=== PATIENT | female | born 1985 | race Caucasian/White ===

== ENCOUNTER 2016-05-03 20:31 | Emergency (ER) | payer OTHER ==
[~2016-05-03 20:31] MED LIST: DIFLUCAN100 MG PO; TRAMADOL HCL50 M1 PO; ZYVOX600 MG PO
[2016-05-03 21:37] LABS: BASOPHIL# 0.1 X10e3 (0-0.3); BASOPHIL% 0.6 % (0-2.5); EOSINOPHIL% 0.2 % (0.0-7.0); HEMATOCRIT 37.5 % (35.0-45.0); HEMOGLOBIN 12.4 gm/dL (12.0-16.0); LYMPHOCYTE# 1.5 X10e3 (1.0-3.5); LYMPHOCYTE% 14.3 % (17.0-45.0); MEAN CELL VOLUME 82.7 FL (83-96); MEAN CORPUSCULAR HEMOGLOBIN 27.3 PG (28-34); MEAN PLATELET VOLUME 8.8 FL (6.5-11.5); MONOCYTE# 0.6 X10e3 (0-1.0); MONOCYTE% 5.7 % (3.0-12.0); NEUTROPHIL# 8.3 X10e3 (1.5-7.1); NEUTROPHIL% 79.2 % (40-75); PLATELET COUNT 304 X10e3 (140-420); RED BLOOD COUNT 4.53 X10e (3.90-5.30); RED CELL DISTRIBUTION WIDTH 14.7 % (11.0-15.5); WHITE BLOOD COUNT 10.5 X10e3 (4.0-10.5)
[2016-05-03 21:38] LABS: DIFF IND NO
[2016-05-03 22:12] LABS: ALBUMIN SERUM 3.8 g/dL (3.5-5.0); ALKALINE PHOSPHATASE 72 U/L (32-92); ALT (SGPT) 10 U/L (10-40); AST (SGOT) 14 U/L (10-42); BILIRUBIN, DIRECT 0.1 mg/dL (0.0-0.2); BILIRUBIN,TOTAL 1.1 mg/dL (0.2-2.0); BLOOD UREA NITROGEN 8 mg/dL (9-23); CALCIUM SERUM 8.7 mg/dL (8.4-10.2); CARBON DIOXIDE 24 mmol/L (22-31); CHLORIDE 104 mmol/L (100-111); CREATININE SERUM 0.8 mg/dL (0.6-1.4); GLOM FILT RATE Estimated ABOVE60 mL/min (>60); GLUCOSE FASTING 125 mg/dL (70-110); LIPASE 19 U/L (22-51); POTASSIUM 3.4 mmol/L (3.5-5.1); PROTEIN TOTAL SERUM 7.2 g/dL (6.0-8.3); SODIUM 137 mmol/L (135-145)
== END 2016-05-04 01:21 | disposition home or self-care (01) ==
LOC: CED 20:31
PROVIDERS: Emergency Medicine
DX: R11.2 Nausea with vomiting, unspecified (principal); F41.9 Anxiety disorder, unspecified; Z90.49 Acquired absence of other specified parts of digestive tract; Z88.8 Allergy status to other drugs, medicaments and biological substances
CPT/HCPCS: 36415; 74177; 80048; 80076; 81003; 82150; 83690; 84703; 85025; 87086; 87088; 87186; 96361; 96374; 96375; 96376; 99284; J1170; J2550; J2765; Q9967

== ENCOUNTER 2016-07-25 06:56 | Inpatient (IN) | payer OTHER ==
--- NOTE | ~2016-07-25 | CO ---
Unit #: [id number] #: [id number] Patient: CORNEL PONCE [id number] [facility]. [place], [place] [address] [id number] I MR#: [id number] NAME: CORNEL PONCE. ROOM: [facility] Age: 31 Sex: F Admission Date: 07/25/2016 : 1985 Attending Physician: Cristino Thorne M.D. Primary Care Physician: No Primary Care Physician Consultation Date: 07/26/2016 CONSULTATION REPORT REASON FOR CONSULTATION Cellulitis and antibiotic management. HISTORY OF PRESENT ILLNESS This is a 31-year-old female who is currently laying in bed. Patient reports that she has had a chronic abdominal wound secondary to necrotizing fasciitis that she got after a approximately 13 months ago. The patient reports that she has undergone multiple surgeries. She was treated at the outside hospital. The patient last was admitted at [facility] in January 2016 for abdominal cellulitis/chronic wound infection which cultures grew MRSA and group D Strep. The patient now reports that over the last one day she has had increasing tenderness and erythema of her abdomen. The patient reports she did have some low grade fever at home. PAST MEDICAL HISTORY Includes: 1. . 2. Multiple abdominal surgeries secondary to necrotizing fasciitis post . 3. Patient denies any diabetes. ALLERGIES No known allergies. However, she reports "I am vancomycin intolerant." SOCIAL HISTORY No tobacco or alcohol use. She does report marijuana use per the H and P. REVIEW OF SYSTEMS The patient reports fever, tenderness in the abdomen with a chronic wound that overall has improved. She denies any UTI signs or symptoms, cough, shortness of breath or chest pain. PHYSICAL EXAMINATION VITAL SIGNS: Temperature is 98.5 with a T-max on admission of 102.8, pulse is 92, blood pressure 129/82 and respiratory rate is 18. GENERAL: This is a no apparent distress female who is morbidly obese, resting in the bed. Her pupils are equal, her neck is supple. CARDIOVASCULAR: S1, S2. Regular rate and rhythm. PULMONARY: Clear to auscultation, however, diminished in the bases and distant sounds. ABDOMEN: Obese with significant erythema and warmth along much of her pannus. The patient has a chronic midline wound that does have some drainage noted with no foul odor. Abdomen is soft and distant bowel Unit #: [id number] #: [id number] Patient: CORNEL PONCE. EXTREMITIES: No clubbing, cyanosis or edema. DIAGNOSTIC STUDIES LABORATORY: BUN 7, creatinine 0.8, sodium 134, potassium 3.2, chloride 103, CO2 24, bilirubin 1.7, AST 14, ALT 13, alkaline phos. 78. Lactic acid 0.9. Glucose is 134. White blood cell count 10.7 which is improved from 19.1 on admission. Hemoglobin 12.7, hematocrit 38.7 and platelets 190. Urinary analysis is unremarkable. Abdominal cultures show gram stain, Gram-positive cocci and Gram-negative rods. Blood cultures are currently pending. February 03, 2016, abdominal cultures for MRSA and group D Strep. IMPRESSION This is a 31-year-old female who is morbidly obese with a history of necrotizing fasciitis approximately 13 months ago after emergent . The patient has had multiple incision and drainages as well as infections including VRE per the patient's report, MRSA and group D Strep. The patient is now admitted with two day history and does have obvious abdominal cellulitis and possible chronic wound infection. Will follow up on CT scan findings. Will treat as abdominal cellulitis/panniculitis. Will add Zyvox and Zosyn. However, continue patient's clindamycin at this time. Patient's leukocytosis already appears to be improving. Will need to follow along patient's temperature. Surgery is also following along with this patient and giving recommendations on wound care. Patient may have limited IV access and objection to PICC line if needed. Will check labs in the morning. Thank you for allowing us to participate in the care of this patient. Further recommendations to follow pending patient's clinical course. Dictated by... June Galvan A.P.R.N. for Ravi Ayon TD: 07/26/2016 11:17 JOB #: [id number] CONSULTATION REPORT Page 1 of 1 X X CONSULTATION REPORT
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
--- NOTE | ~2016-07-25 | DS ---
Unit #: [id number] #: [id number] Patient: CORNEL PONCE [id number] [address] [address] [id number] I MR#: [id number] NAME: CORNEL PONCE. ROOM: 232 Age: 31 Sex: F Admission Date: 07/25/2016 : 1985 Discharge Date: 07/28/2016 Attending Physician: Cristino Thorne M.D. Primary Care Physician: No Primary Care Physician DISCHARGE SUMMARY DISCHARGE DIAGNOSES 1. Abdominal cellulitis. 2. Wound dehiscence. 3. Hyponatremia. 4. Sepsis. HOSPITAL COURSE The patient is a 31-year-old female who presents to [facility] complaining of fever and redness around abdominal wound. The patient had an I and D of an abdominal wall abscess in January 2012. Apparently, the area of prior incision and drainage became red and painful the day prior to presentation. The wound itself opened up and began to have some purulent discharge. As a result, the patient was admitted. CT of the abdomen and pelvis showed skin thickening and an open wound but no abscess. Wound culture ultimately grew MRSA susceptible to Bactrim, tetracyclines and vanc. The patient was initially started on clinda, Zosyn and Zyvox at the time of admission. Given culture results, patient's antibiotics were switched to Zyvox. At the time of discharge, the patient states that she needs to go home and be with her child who is just a few months old. Given availability of culture and sensitivities, it seems reasonable and patient has been discharged home. DISCHARGE MEDICATIONS 1. Zyvox 600 mg p.o. b.i.d. 2. Acetaminophen 650 mg p.o. q.4 hours p.r.n. pain and fever. 3. Bactroban topically to affected area twice a day b.i.d. FOLLOWUP The patient should follow with her primary care provider at the end of her antibiotic course. Dictated by... Ravi Gauthier/ela TD: 07/31/2016 09:41 JOB #: [id number] Unit #: [id number] #: [id number] Patient: CORNEL PONCE DISCHARGE SUMMARY Page 1 of 1 X Cristino Thorne MD DISCHARGE SUMMARY
--- NOTE | ~2016-07-25 | BMI ---
[facility] Nutrition Therapy DATE: 07/26/16 Patient: CORNEL PONCE Physician: MICHAEL Address: [address] [place] [address] Room/Bed: [address] [place] [address], Zip: [place] [address] Admit Date: 07/25/16 Date of : [birth year] Height: 5 6 Weight: 374 169.8 HIGH BMI NOTE: ANTHROPOMETRICS: HT: 66" WT: 169.8 KG BMI: 60.4 DIET: REGULAR RECOMMENDATIONS: 1. ADD HEART HEALTHY DIET RESTRICTION IN ORDER TO PROMOTE GRADUAL WEIGHT LOSS TOWARDS A HEALTHY BMI. Respectfully, KAY KENT RD, LD [facility] cc: client file
--- NOTE | ~2016-07-25 | CT2 ---
[facility] A Service of [facility] RADIOLOGY TEXT RESULTS PATIENT: CORNEL PONCE LOCATION: A 232-01 : [birth year] UNIT #: [id number] AGE: [address]: Cristino Thorne MD SEX: F ORDER DR: [id number] [facility] [address] [facility] [place]. [place], [place] [address] [id number] I MR#: [id number] Acc #: [id number] NAME: CORNEL PONCE. : 1985 SEX: F STUDY DATE/TIME: 07/26/2016 9:12 UNIT: [facility] ROOM: [facility] STUDY DESCRIPTION: CT Abd and Pelv W Cont Attending Physician: Cristino Thorne M.D. Ordering Physician: Ed Doctor [id number] [facility] Primary Care Physician: Primary Care Physician No MEDICAL IMAGING REPORT This report is preliminary unless electronic signature is present EXAM CT abdomen and pelvis with contrast INDICATION Open wound and abscess. Mid to lower abdominal pain for 13 months, MRSA. TECHNIQUE CT of the abdomen and pelvis was performed following the administration of IV contrast. Coronal and sagittal reformatted images were obtained. This CT examination was performed with one or more of the following radiation dose reduction techniques: automatic exposure control, adjustment of mA and/or kV according to patient size, and iterative reconstruction. Comparison with 05/03/2016. FINDINGS The lung bases are clear. The liver is unremarkable. Cholecystectomy. The spleen is unremarkable. Kidneys are unremarkable. The adrenal glands and pancreas are unremarkable. There is a small fat-containing ventral abdominal wall hernia. No evidence for bowel obstruction. There is no free fluid in the abdomen. PELVIS: There is no evidence for a pelvic abscess. The colon is unremarkable. The appendix is normal. There is skin thickening and edema involving the lower abdominal wall anteriorly with what appears to be an open wound. Findings may reflect cellulitis. Please correlate clinically. There is no evidence for definite abscess. IMPRESSION 1. There is skin thickening involving the lower abdominal wall anteriorly with underlying fat stranding and what appears to be an open wound or a large scar. No evidence for abscess. Correlate clinically with physical exam findings. 2. No evidence of intraabdominal or pelvic abscess. STS. [facility] A Service of [facility] RADIOLOGY TEXT RESULTS PATIENT: CORNEL PONCE LOCATION: [facility] 232-01 : [birth year] UNIT #: [id number] AGE: [address]: Cristino Thorne MD SEX: F ORDER DR: 3. Additional findings as described. Dictated by... Daryn Hussein M.D. THIS IS AN ELECTRONICALLY VERIFIED REPORT Daryn Hussein M.D. at 07/27/2016 7:14 AM ALEX/seun TD: 07/26/2016 13:10 JOB #: [id number] MEDICAL IMAGING REPORT Page 1 of 1 COPY
[2016-07-25 08:35] LABS: BASOPHIL% 0.2 % (0-2.5); EOSINOPHIL% 0.1 % (0.0-7.0); HEMATOCRIT 41.7 % (35.0-45.0); HEMOGLOBIN 13.7 gm/dL (12.0-16.0); LYMPHOCYTE# 0.7 X10e3 (1.0-3.5); LYMPHOCYTE% 3.7 % (17.0-45.0); MEAN CELL VOLUME 84.4 FL (83-96); MEAN CORPUSCULAR HEMOGLOBIN 27.6 PG (28-34); MEAN CORPUSCULAR HGB CONC 32.7 g/dL (30-36); MEAN PLATELET VOLUME 9.1 FL (6.5-11.5); MONOCYTE# 0.5 X10e3 (0-1.0); MONOCYTE% 2.9 % (3.0-12.0); NEUTROPHIL# 17.8 X10e3 (1.5-7.1); NEUTROPHIL% 93.1 % (40-75); PLATELET COUNT 227 X10e3 (140-420); RED BLOOD COUNT 4.94 X10e (3.90-5.30); RED CELL DISTRIBUTION WIDTH 14.2 % (11.0-15.5); WHITE BLOOD COUNT 19.1 X10e3 (4.0-10.5)
[2016-07-25 08:36] LABS: DIFF IND YES
[2016-07-25 08:49] LABS: URINE SOURCE CLEAN CATCH
[2016-07-25 08:55] LABS: URINE APPEARANCE CLEAR; URINE BILIRUBIN NEG (NEG); URINE BLOOD NEG (NEG); URINE COLOR YELLOW; URINE GLUCOSE NEG (NEG); URINE KETONE TRACE (NEG); URINE LEUKOCYTE ESTERASE NEG (NEG); URINE NITRATE NEG (NEG); URINE PH 6.5 (5-8); URINE PROTEIN NEG (NEG); URINE SPECIFIC GRAVITY 1.031 (1.003-1.035); URINE UROBILINOGEN 0.2 MG/DL (NEG)
[2016-07-25 08:57] LABS: ANISOCYTOSIS SL; PLATELET ESTIMATE NORMAL (NORMAL); RBC NORMAL YES
[2016-07-25 08:59] LABS: CULTURE INDICATED? NO
[2016-07-25 09:06] LABS: ALBUMIN SERUM 3.8 g/dL (3.5-5.0); BILIRUBIN, DIRECT 0.3 mg/dL (0.0-0.2); BILIRUBIN,INDIRECT 1.4 mg/dL (0.0-0.9); BILIRUBIN,TOTAL 1.7 mg/dL (0.2-2.0); BUN/CREATININE RATIO 17.5; CREATININE SERUM 0.8 mg/dL (0.6-1.4); GLOM FILT RATE Estimated 98.3 mL/min (>60); POTASSIUM 3.6 mmol/L (3.5-5.1); PROTEIN TOTAL SERUM 7.3 g/dL (6.0-8.3)
[2016-07-25 10:07] LABS: POC - CKMB <1.0 ng/mL (0.0-7.9); POC - TROPONIN <0.05 ng/mL (<=0.05)
[2016-07-25] MEDS ORDERED: NO MEDICATIONS (15:46)
[2016-07-26 04:40] LABS: HEMATOCRIT 38.7 % (35.0-45.0); HEMOGLOBIN 12.7 gm/dL (12.0-16.0); MEAN CELL VOLUME 85.9 FL (83-96); MEAN CORPUSCULAR HEMOGLOBIN 28.2 PG (28-34); MEAN CORPUSCULAR HGB CONC 32.8 g/dL (30-36); RED BLOOD COUNT 4.51 X10e (3.90-5.30); RED CELL DISTRIBUTION WIDTH 14.3 % (11.0-15.5); WHITE BLOOD COUNT 10.7 X10e3 (4.0-10.5)
[2016-07-26 05:06] LABS: BUN/CREATININE RATIO 8.75; CALCIUM SERUM 8.2 mg/dL (8.4-10.2); CREATININE SERUM 0.8 mg/dL (0.6-1.4); GLOM FILT RATE Estimated 98.3 mL/min (>60); POTASSIUM 3.2 mmol/L (3.5-5.1)
[2016-07-26 17:42] LABS: MAGNESIUM 1.9 mg/dL (1.6-3.0); POTASSIUM 3.9 mmol/L (3.5-5.1)
[2016-07-27 15:17] LABS: HEMOGLOBIN 12.9 gm/dL (12.0-16.0); MEAN CELL VOLUME 84.9 FL (83-96); MEAN CORPUSCULAR HGB CONC 32.9 g/dL (30-36); MEAN PLATELET VOLUME 8.5 FL (6.5-11.5); RED BLOOD COUNT 4.59 X10e (3.90-5.30); RED CELL DISTRIBUTION WIDTH 14.1 % (11.0-15.5); WHITE BLOOD COUNT 8.2 X10e3 (4.0-10.5)
[2016-07-27 16:09] LABS: BUN/CREATININE RATIO 8.57; CALCIUM SERUM 8.4 mg/dL (8.4-10.2); CREATININE SERUM 0.7 mg/dL (0.6-1.4); GLOM FILT RATE Estimated 115.5 mL/min (>60); MAGNESIUM 2.1 mg/dL (1.6-3.0); POTASSIUM 3.7 mmol/L (3.5-5.1)
[2016-07-28 07:46] LABS: HEMATOCRIT 35.2 % (35.0-45.0); HEMOGLOBIN 11.7 gm/dL (12.0-16.0); MEAN CELL VOLUME 85.1 FL (83-96); MEAN CORPUSCULAR HEMOGLOBIN 28.2 PG (28-34); MEAN CORPUSCULAR HGB CONC 33.1 g/dL (30-36); MEAN PLATELET VOLUME 9.2 FL (6.5-11.5); RED BLOOD COUNT 4.14 X10e (3.90-5.30); RED CELL DISTRIBUTION WIDTH 13.9 % (11.0-15.5); WHITE BLOOD COUNT 7.1 X10e3 (4.0-10.5)
[2016-07-28 08:18] LABS: CREATININE SERUM 0.7 mg/dL (0.6-1.4); GLOM FILT RATE Estimated 115.5 mL/min (>60); POTASSIUM 3.3 mmol/L (3.5-5.1)
[2016-07-28] MEDS ORDERED: BACTROBAN15 GM TOP (11:34)
[2016-07-28] MEDS ORDERED: APAP325 MG PO (11:34)
[2016-07-28] MEDS ORDERED: ZYVOX600 MG PO (11:35)
== END 2016-07-28 13:59 | disposition home or self-care (01) | DRG 872 ==
LOC: CED 06:56 → C3A PCU 11:21 → CEDOF 11:21 → C3A PCU 11:21 → CED 11:21 → CEDOF 12:30 → C3A PCU 12:30 → CED 12:30 → C2A 12:30 → C3A PCU 12:42 → CEDOF 12:42 → C3A PCU 07-26 07:26 → C2A 07-26 20:04
PROVIDERS: Emergency Medicine; Internal Medicine; Nurse Practitioner
PROC: 05H333Z Insertion of Infusion Device into Right Innominate Vein, Percutaneous Approach (ICD-10-PCS; principal; 2016-07-27)
DX: A41.9 Sepsis, unspecified organism (principal); T81.30XA Disruption of wound, unspecified, initial encounter; L03.311 Cellulitis of abdominal wall; Z68.43 Body mass index [BMI] 50.0-59.9, adult; E87.1 Hypo-osmolality and hyponatremia; Z86.14 Personal history of Methicillin resistant Staphylococcus aureus infection; E66.01 Morbid (severe) obesity due to excess calories
CPT/HCPCS: 36415; 74177; 80048; 80076; 81003; 82553; 83605; 83735; 84132; 84484; 84703; 85025; 85027; 87040; 87070; 87077; 87186; 87205; 96361; 96374; 96375; 99285; J1170; J2020; J2270; J2543; J2550; J2765; J3370; J3475; Q9967